=== PATIENT | male | born 1990 | race Caucasian/White ===

== ENCOUNTER 2016-06-20 14:46 | Emergency (ER) | payer OTHER ==
[~2016-06-20 14:46] MED LIST: No Historical Meds
--- NOTE | 2016-06-20 15:31 | EDDOCDS ---
Physician Documentation [facility] Name: Ger Fragoso Age: 25 yrs Sex: Male : 1990 Arrival Date: 06/20/2016 Time: 14:46 Bed Triage 3 Private MD: Marley Heart L. Disposition: 06/20/16 15:18 Discharged to Home/Self Care. Impression: Dental caries. - Condition is Stable. - Discharge Instructions: Dental Pain. - Prescriptions for Clindamycin HCl 300 mg Oral Capsule - take 1 capsule by ORAL route every 6 hours; 40 capsule. etodolac 200 mg Oral Capsule - take 1 capsule by ORAL route 3 times per day; 30 capsule. - Medication Reconciliation, Local Pharmacy Hours form. - Follow up: Your, Dentist; When: Call to arrange an appointment; Reason: Further diagnostic work-up, Recheck today's complaints, Continuance of care. - Problem is an acute exacerbation. - Symptoms are unchanged. Historical: - Allergies: No known drug Allergies; - Home Meds: 1. none - PMHx: drug addictioncan not have any type of controlled substances; - PSHx: left wrist surgery; - Social history: Smoking status: Patient uses tobacco products, light tobacco smoker. No barriers to communication noted, The patient speaks fluent French. - Family history: Not pertinent. - : The pt / caregiver states he / she is not on anticoagulants. Home medication list is obtained from the patient. - Exposure Risk Screening:: None identified. Vital Signs: 06/20 14:47 BP 171 / 77; Pulse 59; Resp 18; Temp 98.9(O); Pulse Ox 98% on R/A; Weight 127.01 kg / elp 280.01 lbs (R); Height 6 ft. 2 in. (187.96 cm) (R); Pain 10/10; 14:47 Body Mass Index 35.95 (127.01 kg, 187.96 cm) elp Signatures: Benny Nino, RN RN Arelis Martinez RN RN Ravin Virk PA PA btw MTDD
--- NOTE | 2016-06-20 15:31 | EDDOCDS ---
Nurse's Notes [facility] Name: Ger Fragoso Age: 25 yrs Sex: Male : 1990 Arrival Date: 06/20/2016 Time: 14:46 Bed Triage 3 Private MD: Marley Heart L. Diagnosis: Dental caries Presentation: 06/20 14:49 Presenting complaint: Patient states: lower dental pain x 1 week. Adult Sepsis [facility] Screening: The patient does not have new or worsening altered mentation. Patient's respiratory rate is less than 22. Patient has a qSOFA score of 0- Negative Sepsis Screen. Suicide/Homicide risk assessment- the patient denies having any suicidal and/or homicidal ideations and does not present with any other emotional, behavioral or mental health complaints. Status: Patient is not a track service worker or dependent. Transition of care: patient was not received from another setting of care. 14:49 Acuity: RICH Level 5 [facility] 14:49 Method Of Arrival: Walkin/Carried/Asstd [facility] Triage Assessment: 14:52 General: Appears uncomfortable, Behavior is appropriate for age. Pain: Location: lower kpj right third molar Pain currently is 10 out of 10 on a pain scale. Pt Declines HIV testing. Neurological: Level of Consciousness is awake, alert, Oriented to person, place, time. EENT: Reports pain in lower right third molar Pain is 10 out of 10 on a pain scale. Respiratory: Airway is patent Respiratory effort is even, unlabored, Respiratory pattern is regular, symmetrical. Derm: Skin is pink, warm & dry. Historical: - Allergies: No known drug Allergies; - Home Meds: 1. none - PMHx: drug addictioncan not have any type of controlled substances; - PSHx: left wrist surgery; - Social history: Smoking status: Patient uses tobacco products, light tobacco smoker. No barriers to communication noted, The patient speaks fluent Slovak. - Family history: Not pertinent. - : The pt / caregiver states he / she is not on anticoagulants. Home medication list is obtained from the patient. - Exposure Risk Screening:: None identified. Screenin:29 Screening information is obtained from the patient. Fall risk: No risks identified. dwg Assistance ADL's: requires no assistance with activities of daily living. Abuse/DV Screen: The patient / caregiver reports he/she is: not in a situation that causes fear, pain or injury. Nutritional screening: No deficits noted. Advance Directives: Currently, there is no health care proxy. There is no active DNR order. There is no living will. There is no Power of Cost Accountant. Advance directive information has not previously been placed in an [facility] medical record. Further advance directive information is declined. home support is adequate. Assessment: 15:28 General: Appears in no apparent distress. General: Lower dental pain for over a week. dwg Pain: Pain currently is 8 out of 10 on a pain scale. Neurological: Level of Consciousness is awake, alert, Oriented to person, place, time. Respiratory: Airway is patent Respiratory effort is even, unlabored, Respiratory pattern is regular, symmetrical. Vital Signs: 14:47 BP 171 / 77; Pulse 59; Resp 18; Temp 98.9(O); Pulse Ox 98% on R/A; Weight 127.01 kg elp (R); Height 6 ft. 2 in. (187.96 cm) (R); Pain 10/10; 14:47 Body Mass Index 35.95 (127.01 kg, 187.96 cm) [facility] Vitals: 14:47 Log In Time: June 20, 2016 at 14:45. [facility] ED Course: 14:47 Patient visited by Lety Richards PCA. elp 14:47 Marley Heart is Private Physician. elp 14:47 Patient moved to Waiting el 14:48 Patient visited by Lety Richards PCA. elp 14:48 Patient moved to Pre RCE elp 14:50 Triage Initiated [facility] 14:53 Patient moved to Triage 3 [facility] 15:14 [facility]avin Bruno [facility]. btw 15:14 Shanae Romero MD is Attending Physician. btw 15:14 Patient visited by Ravin Bruno PA. btw 15:17 Your Dentist is Referral Physician. btw 15:29 The patient / caregiver is instructed regarding the plan of care and ED course. dwg 15:30 No IV's were initiated during this patient's visit. No procedures done that require dwg assistance. Order Results: There are currently no results for this order. Outcome: 15:18 Discharge ordered by Provider. btw 15:29 Discharge Assessment: Patient awake, alert and oriented x 3. No cognitive and/or dwg functional deficits noted. Patient verbalized understanding of disposition instructions. patient administered narcotics - no. The following High Risk Discharge criteria are identified: None. Discharged to home ambulatory. Condition: good Condition: stable. No special radiology studies were completed. Property sent home with patient. 15:30 Patient left the ED. dwg Signatures: Benny Nino RN RN dwg Jobson, Karen, RN RN Ravin Virk PA PA btw Susie, Lety, NANCY SULFURIC ACID PLANT SUPERVISOR elp MTDD
--- NOTE | 2016-06-22 16:31 | EDDOCDS ---
Physician Documentation [facility] Name: Ger Fragoso Iii Age: 25 yrs Sex: Male : 1990 Arrival Date: 06/20/2016 Time: 14:46 Bed Triage 3 Private MD: Marley Heart L. Disposition: 06/20/16 15:18 Discharged to Home/Self Care. Impression: Dental caries. - Condition is Stable. - Discharge Instructions: Dental Pain. - Prescriptions for Clindamycin HCl 300 mg Oral Capsule - take 1 capsule by ORAL route every 6 hours; 40 capsule. etodolac 200 mg Oral Capsule - take 1 capsule by ORAL route 3 times per day; 30 capsule. - Medication Reconciliation, Local Pharmacy Hours form. - Follow up: Your, Dentist; When: Call to arrange an appointment; Reason: Further diagnostic work-up, Recheck today's complaints, Continuance of care. - Problem is an acute exacerbation. - Symptoms are unchanged. Historical: - Allergies: No known drug Allergies; - Home Meds: 1. none - PMHx: drug addictioncan not have any type of controlled substances; - PSHx: left wrist surgery; - Social history: Smoking status: Patient uses tobacco products, light tobacco smoker. No barriers to communication noted, The patient speaks fluent Mauritian. - Family history: Not pertinent. - : The pt / caregiver states he / she is not on anticoagulants. Home medication list is obtained from the patient. - Exposure Risk Screening:: None identified. Vital Signs: 06/20 14:47 BP 171 / 77; Pulse 59; Resp 18; Temp 98.9(O); Pulse Ox 98% on R/A; Weight 127.01 kg / elp 280.01 lbs (R); Height 6 ft. 2 in. (187.96 cm) (R); Pain 10/10; 14:47 Body Mass Index 35.95 (127.01 kg, 187.96 cm) elp MDM: 15:45 [facility] Payment Agreement was scanned into [employer] and attached to record. lg 06/21 11:38 T-Sheet-- Draft Copy was scanned into [employer] and attached to record. gb Signatures: Benny Nino RN RN Arelis Martinez RN RN Lexie Mccartney, Reg Reg gb Paula Tubbs, Reg Reg lg Ravin Bruno PA PA btw The chart was reviewed and I authenticate all verbal orders and agree with the evaluation and treatment provided.Attachments: 06/20 15:45 [facility] Payment Agreement lg 06/21 11:38 T-Sheet-- Draft Copy gb Chart Complete MTDD
--- NOTE | 2016-06-22 16:31 | EDDOCDS ---
Physician Documentation [facility] Name: Ger Fragoso Iii Age: 25 yrs Sex: Male : 1990 Arrival Date: 06/20/2016 Time: 14:46 Bed Triage 3 Private MD: Marley Heart L. Disposition: 06/20/16 15:18 Discharged to Home/Self Care. Impression: Dental caries. - Condition is Stable. - Discharge Instructions: Dental Pain. - Prescriptions for Clindamycin HCl 300 mg Oral Capsule - take 1 capsule by ORAL route every 6 hours; 40 capsule. etodolac 200 mg Oral Capsule - take 1 capsule by ORAL route 3 times per day; 30 capsule. - Medication Reconciliation, Local Pharmacy Hours form. - Follow up: Your, Dentist; When: Call to arrange an appointment; Reason: Further diagnostic work-up, Recheck today's complaints, Continuance of care. - Problem is an acute exacerbation. - Symptoms are unchanged. Historical: - Allergies: No known drug Allergies; - Home Meds: 1. none - PMHx: drug addictioncan not have any type of controlled substances; - PSHx: left wrist surgery; - Social history: Smoking status: Patient uses tobacco products, light tobacco smoker. No barriers to communication noted, The patient speaks fluent Bruneian. - Family history: Not pertinent. - : The pt / caregiver states he / she is not on anticoagulants. Home medication list is obtained from the patient. - Exposure Risk Screening:: None identified. Vital Signs: 06/20 14:47 BP 171 / 77; Pulse 59; Resp 18; Temp 98.9(O); Pulse Ox 98% on R/A; Weight 127.01 kg / elp 280.01 lbs (R); Height 6 ft. 2 in. (187.96 cm) (R); Pain 10/10; 14:47 Body Mass Index 35.95 (127.01 kg, 187.96 cm) elp MDM: 15:45 [facility] Payment Agreement was scanned into [employer] and attached to record. lg 06/21 11:38 T-Sheet-- Draft Copy was scanned into [employer] and attached to record. gb Signatures: Benny Nino RN RN Arelis Martinez RN RN Lexie Mccartney, Reg Reg gb Paula Tubbs, Reg Reg lg Ravin Bruno PA PA btw The chart was reviewed and I authenticate all verbal orders and agree with the evaluation and treatment provided.Attachments: 06/20 15:45 [facility] Payment Agreement lg 06/21 11:38 T-Sheet-- Draft Copy gb Chart Complete MTDD
--- NOTE | 2016-06-22 16:31 | EDDOCDS ---
Nurse's Notes [facility] Name: Ger Fragoso Iii Age: 25 yrs Sex: Male : 1990 Arrival Date: 06/20/2016 Time: 14:46 Bed Triage 3 Private MD: Marley Heart L. Diagnosis: Dental caries Presentation: 06/20 14:49 Presenting complaint: Patient states: lower dental pain x 1 week. Adult Sepsis [facility] Screening: The patient does not have new or worsening altered mentation. Patient's respiratory rate is less than 22. Patient has a qSOFA score of 0- Negative Sepsis Screen. Suicide/Homicide risk assessment- the patient denies having any suicidal and/or homicidal ideations and does not present with any other emotional, behavioral or mental health complaints. Status: Patient is not a client services account manager or dependent. Transition of care: patient was not received from another setting of care. 14:49 Acuity: RICH Level 5 [facility] 14:49 Method Of Arrival: Walkin/Carried/Asstd [facility] Triage Assessment: 14:52 General: Appears uncomfortable, Behavior is appropriate for age. Pain: Location: lower kpj right third molar Pain currently is 10 out of 10 on a pain scale. Pt Declines HIV testing. Neurological: Level of Consciousness is awake, alert, Oriented to person, place, time. EENT: Reports pain in lower right third molar Pain is 10 out of 10 on a pain scale. Respiratory: Airway is patent Respiratory effort is even, unlabored, Respiratory pattern is regular, symmetrical. Derm: Skin is pink, warm & dry. Historical: - Allergies: No known drug Allergies; - Home Meds: 1. none - PMHx: drug addictioncan not have any type of controlled substances; - PSHx: left wrist surgery; - Social history: Smoking status: Patient uses tobacco products, light tobacco smoker. No barriers to communication noted, The patient speaks fluent Malay. - Family history: Not pertinent. - : The pt / caregiver states he / she is not on anticoagulants. Home medication list is obtained from the patient. - Exposure Risk Screening:: None identified. Screenin:29 Screening information is obtained from the patient. Fall risk: No risks identified. dwg Assistance ADL's: requires no assistance with activities of daily living. Abuse/DV Screen: The patient / caregiver reports he/she is: not in a situation that causes fear, pain or injury. Nutritional screening: No deficits noted. Advance Directives: Currently, there is no health care proxy. There is no active DNR order. There is no living will. There is no Power of Supervisor Gear Repair. Advance directive information has not previously been placed in an [facility] medical record. Further advance directive information is declined. home support is adequate. Assessment: 15:28 General: Appears in no apparent distress. General: Lower dental pain for over a week. dwg Pain: Pain currently is 8 out of 10 on a pain scale. Neurological: Level of Consciousness is awake, alert, Oriented to person, place, time. Respiratory: Airway is patent Respiratory effort is even, unlabored, Respiratory pattern is regular, symmetrical. Vital Signs: 14:47 BP 171 / 77; Pulse 59; Resp 18; Temp 98.9(O); Pulse Ox 98% on R/A; Weight 127.01 kg elp (R); Height 6 ft. 2 in. (187.96 cm) (R); Pain 10/10; 14:47 Body Mass Index 35.95 (127.01 kg, 187.96 cm) el Vitals: 14:47 Log In Time: June 20, 2016 at 14:45. el ED Course: 14:47 Patient visited by Lety Richards PCA. elp 14:47 Marley Heart is Private Physician. elp 14:47 Patient moved to Waiting el 14:48 Patient visited by Lety Richards PCA. elp 14:48 Patient moved to Pre RCE elp 14:50 Triage Initiated [facility] 14:53 Patient moved to Triage 3 [facility] 15:14 Ravin Bruno [facility]. btw 15:14 Shanae Romero MD is Attending Physician. btw 15:14 Patient visited by Ravin Bruno PA. btw 15:17 Your, Dentist is Referral Physician. btw 15:29 The patient / caregiver is instructed regarding the plan of care and ED course. dwg 15:30 No IV's were initiated during this patient's visit. No procedures done that require dwg assistance. 15:45 Patient name changed from Ger\S\Jamar\S\[place]\S\ to Ger\S\W\S\[place]. EDMS 15:45 [facility] [place] Agreement was scanned into [employer] and attached to record. lg 15:49 Patient name changed from Ger\S\W\S\[place]\S\ to Ger\S\W\S\[place] Iii. EDMS 06/21 11:38 T-Sheet-- Draft Copy was scanned into [employer] and attached to record. Order Results: There are currently no results for this order. Outcome: 06/20 15:18 Discharge ordered by Provider. btw 15:29 Discharge Assessment: Patient awake, alert and oriented x 3. No cognitive and/or dwg functional deficits noted. Patient verbalized understanding of disposition instructions. patient administered narcotics - no. The following High Risk Discharge criteria are identified: None. Discharged to home ambulatory. Condition: good Condition: stable. No special radiology studies were completed. Property sent home with patient. 15:30 Patient left the ED. dwg Signatures: [facility] Benny Nino, RN RN [facility] Arelis Morales, RYAN RN Lexie Mcacrtney, Reg Reg gb Paula Tubbs, Reg Reg lg Ravin Bruno PA PA btw Susie, Lety, BRIDGE GAME DIRECTOR BRIDGE GAME DIRECTOR elp Chart Complete MTDD
== END 2016-06-20 15:30 | disposition home or self-care (01) ==
LOC: M ED 14:46
DX: K02.9 Dental caries, unspecified (principal); F17.210 Nicotine dependence, cigarettes, uncomplicated

== ENCOUNTER → 2016-06-28 | Outpatient (CLI) | payer OTHER ==
[2016-06-28 08:43] LABS: ALBUMIN 3.7 GM/DL (3.2-5.2); ALBUMIN/GLOBULIN RATIO 1.06 (1.00-1.93); BILIRUBIN,DIRECT 0.1 MG/DL (0.0-0.2); BILIRUBIN,TOTAL 0.5 MG/DL (0.2-1.0); TOTAL PROTEIN 7.2 GM/DL (6.4-8.2)
== END ==
LOC: M LAB 07:44
PROVIDERS: ATTEND Nurse Practitioner Family
DX: N39.0 Urinary tract infection, site not specified (principal); K72.90 Hepatic failure, unspecified without coma

== ENCOUNTER → 2016-07-30 | Outpatient (REF) | payer OTHER | LOC: M SMT 17:18 | PROVIDERS: ATTEND Nurse Practitioner Women's Health | DX: R31.29 Other microscopic hematuria (principal) ==

== ENCOUNTER → 2016-08-12 | Outpatient (CLI) | payer OTHER ==
[~2016-08-12] MED LIST changes: +ISOVUE-370 76% 100ML VIAL (Q9967) As Ordered ONE
--- NOTE | 2016-08-12 08:51 | REP ---
Clinical: Hematuria. Technique: Axial precontrast, contrast enhanced, and delayed images of the abdomen and pelvis using 100 ml Isovue 370 intravenous contrast material with coronal and sagittal re-formations. Comparison: None. Findings: Evaluation of the urinary tract system in all phases of enhancement demonstrates normal kidneys, ureters, and bladder. Specifically, there is no perinephric stranding, hydroureteronephrosis, intrarenal or obstructing ureteral calculi. No renal cyst or mass lesions are identified. Liver, spleen, pancreas, gallbladder, bilateral adrenal glands are normal. The enteric system is without obstruction or acute inflammatory process normal terminal ileum and appendix are identified in the right lower quadrant sigmoid diverticula noted without acute diverticulitis. No ascites. No free air. No adenopathy. Small hiatal hernia at the gastroesophageal junction. Lung bases clear. Visualized heart and pericardium normal. Musculoskeletal structures are intact - multiple Schmorl's nodes suggested. Impression: 1. Normal urinary tract system. 2. Small hiatal hernia 3. Sigmoid diverticula without acute diverticulitis 4. No acute intra-abdominal or pelvic pathology appreciated 5. Multilevel Schmorl's nodes. Signed by Venkatesh Delgado MD 08/12/2016 08:43 A
== END ==
LOC: M RAD 07:58
PROVIDERS: ATTEND Nurse Practitioner Women's Health
DX: R31.29 Other microscopic hematuria (principal)

== ENCOUNTER 2017-02-11 11:43 | Emergency (ER) | payer OTHER ==
[~2017-02-11] VITALS: Ht 188 cm; Wt 129.6 kg
[~2017-02-11 11:43] MED LIST changes: -ISOVUE-370 76% 100ML VIAL (Q9967) As Ordered ONE
[2017-02-11] MEDS ORDERED: ZITHTAB PO (13:30)
[2017-02-11] MEDS ORDERED: ALBU17IN INH (13:31)
[2017-02-11 13:34] VITALS: BP 142/79
== END 2017-02-11 13:51 | disposition home or self-care (01) ==
LOC: M ED 11:43
DX: J40 Bronchitis, not specified as acute or chronic (principal); I10 Essential (primary) hypertension; F41.9 Anxiety disorder, unspecified; F33.9 Major depressive disorder, recurrent, unspecified; F17.210 Nicotine dependence, cigarettes, uncomplicated

== ENCOUNTER → 2020-04-24 | Outpatient (REF) | payer OTHER ==
[~2020-04-24] MED LIST changes: +ALBU17IN INH; +ZITHTAB PO
[2020-04-24 12:35] LABS: BASO # 0.1 10^3/uL (0.0-0.2); BASO % 0.7 % (0.0-1.0); EOS # 0.4 10^3/uL (0.0-0.5); EOS % 3.2 % (0.0-3.0); HEMATOCRIT 46.2 % (42.0-52.0); HEMOGLOBIN 14.4 g/dl (13.5-17.5); LYMPH # 2.9 10^3/uL (1.5-5.0); LYMPH % 26.9 % (24.0-44.0); MEAN CORPUSCULAR HEMOGLOBIN 27.4 pg (27.0-33.0); MEAN CORPUSCULAR HGB CONC 31.2 g/dl (32.0-36.5); MEAN CORPUSCULAR VOLUME 87.8 fl (80.0-96.0); MONO # 0.7 10^3/uL (0.0-0.8); MONO % 6.2 % (0.0-5.0); NEUTROPHILS # 6.8 10^3/uL (1.5-8.5); NEUTROPHILS % 62.7 % (36.0-66.0); PLATELET COUNT, AUTOMATED 234 10^3/uL (150-450); RED BLOOD COUNT 5.26 10^6/uL (4.30-6.10); WHITE BLOOD COUNT 10.9 10^3/uL (4.0-10.0)
[2020-04-24 13:10] LABS: ALBUMIN 3.6 GM/DL (3.2-5.2); ALT/SGPT 59 U/L (12-78); BILIRUBIN,TOTAL 0.5 MG/DL (0.2-1.0); BLOOD UREA NITROGEN 12 MG/DL (7-18); CALCIUM LEVEL 8.8 MG/DL (8.5-10.1); CARBON DIOXIDE LEVEL 29 MEQ/L (21-32); CHLORIDE LEVEL 103 MEQ/L (98-107); CHOLESTEROL LEVEL 212 MG/DL (<200); CHOLESTEROL RISK RATIO 6.838 (<5); CREATININE FOR GFR 0.83 MG/DL (0.70-1.30); FREE T4 1.34 NG/DL (0.76-1.46); GLOMERULAR FILTRATION RATE > 60.0 (>60); GLUCOSE, FASTING 113 MG/DL (70-100); HDL CHOLESTEROL 31 MG/DL (>40); LDL CHOLESTEROL 138 MG/DL (<100); NON-HDL-C 181 MG/DL; SODIUM LEVEL 138 MEQ/L (136-145); TOTAL 25(OH) VITAMIN D 19.7 NG/ML (30.0-100.0); TOTAL PROTEIN 8.1 GM/DL (6.4-8.2); TRIGLYCERIDES LEVEL 217 MG/DL (<150)
[2020-04-24 13:14] LABS: HEMOGLOBIN A1c 6.6 %
== END ==
LOC: M LAB REF 11:52
PROVIDERS: ATTEND Nurse Practitioner Family
DX: E66.01 Morbid (severe) obesity due to excess calories (principal); F90.8 Attention-deficit hyperactivity disorder, other type; F17.200 Nicotine dependence, unspecified, uncomplicated

== ENCOUNTER 2020-05-05 07:43 | Emergency (ER) | payer OTHER ==
[~2020-05-05] VITALS: Ht 188 cm; Wt 159.4 kg
[2020-05-05] MEDS ORDERED: BUPR1TAB56 (07:51)
[2020-05-05] MEDS ORDERED: ESCI20TA (07:51)
[2020-05-05] MEDS ORDERED: ACETAMINOPHEN 500 MG TAB PO ONE (08:45)
[2020-05-05] MEDS ORDERED: KETOROLAC 60MG 2ML VIAL IM ONE (08:45)
[2020-05-05] MEDS ORDERED: ROBA750T4 PO (09:35)
[2020-05-05] MEDS ORDERED: KETO10TAB PO (09:35)
[2020-05-05 09:44] VITALS: BP 117/69
== END 2020-05-05 09:54 | disposition home or self-care (01) ==
LOC: M ED 07:43
DX: M54.31 Sciatica, right side (principal); M54.32 Sciatica, left side; F17.200 Nicotine dependence, unspecified, uncomplicated
CPT/HCPCS: 96372; 99284; J1885

== ENCOUNTER 2020-11-03 17:10 | Emergency (ER) | payer OTHER ==
[~2020-11-03] VITALS: Ht 188 cm; Wt 150.5 kg
[~2020-11-03 17:10] MED LIST changes: +BUPR1TAB56; +ESCI20TA16; +KETO10TAB PO; +ROBA750T4 PO
[2020-11-03 17:11] VITALS: BP 139/69
[2020-11-03] MEDS: NS 1,000 ML IV ONE (17:45)
[2020-11-03] MEDS ORDERED: MORPHINE 4 MG/ML 1ML VIAL/SYRINGE (J2270) As Ordered ONE (17:47)
[2020-11-03] MEDS ORDERED: ONDANSETRON 4MG/2ML VIAL As Ordered ONE (17:47)
[2020-11-03] MEDS ORDERED: ISOVUE-370 76% 100ML VIAL As Ordered ONE (18:00)
[2020-11-03] MEDS: MORPHINE 4 MG/ML 1ML VIAL/SYRINGE (J2270) IV ONE (18:05)
[2020-11-03] MEDS: ONDANSETRON 4MG/2ML VIAL IV ONE (18:05)
[2020-11-03 18:25] LABS: BASO # 0.1 10^3/uL (0.0-0.2); BASO % 0.5 % (0.0-1.0); EOS # 0.3 10^3/uL (0.0-0.5); EOS % 1.8 % (0.0-3.0); HEMOGLOBIN 14.3 g/dl (13.5-17.5); LYMPH # 3.1 10^3/uL (1.5-5.0); MEAN CORPUSCULAR HEMOGLOBIN 28.5 pg (27.0-33.0); MEAN CORPUSCULAR HGB CONC 32.5 g/dl (32.0-36.5); MEAN CORPUSCULAR VOLUME 87.8 fl (80.0-96.0); MONO # 0.8 10^3/uL (0.0-0.8); MONO % 5.3 % (2.0-8.0); NEUTROPHILS # 10.4 10^3/uL (1.5-8.5); NEUTROPHILS % 70.9 % (36.0-66.0); PLATELET COUNT, AUTOMATED 255 10^3/uL (150-450); RED BLOOD COUNT 5.01 10^6/uL (4.30-6.10); WHITE BLOOD COUNT 14.7 10^3/uL (4.0-10.0)
[2020-11-03 18:48] LABS: ALBUMIN 3.8 GM/DL (3.2-5.2); ALT/SGPT 50 U/L (12-78); AMYLASE 25 U/L (25-115); BILIRUBIN,DIRECT 0.1 MG/DL (0.0-0.2); BILIRUBIN,TOTAL 0.5 MG/DL (0.2-1.0); CPK CREATINE PHOSPHOKINASE 461 U/L (39-308); LIPASE 47 U/L (73-393); MB/CK RELATIVE INDEX 0.65 (< OR =4); TOTAL PROTEIN 8.1 GM/DL (6.4-8.2); TROPONIN I < 0.02 NG/ML (< 0.10)
--- NOTE | 2020-11-03 18:49 | REPVR ---
PROCEDURE INFORMATION: Exam: CT Head Without Contrast Exam date and time: 11/03/2020 5:42 PM Age: 30 years old Clinical indication: Injury or trauma; Other: Pinned by lawn tractor; Blunt trauma (contusions or hematomas) TECHNIQUE: Imaging protocol: Computed tomography of the head without contrast. Radiation optimization: All CT scans at this facility use at least one of these dose optimization techniques: automated exposure control; mA and/or kV adjustment per patient size (includes targeted exams where dose is matched to clinical indication); or iterative reconstruction. COMPARISON: CT Head without contrast 12/06/2013 12:42 PM FINDINGS: Brain: Normal. No hemorrhage. Unremarkable white matter. No mass effect. Cerebral ventricles: No ventriculomegaly. Paranasal sinuses: Small retention cyst right maxillary sinus. Inflammatory changes in the ethmoid and left sphenoid sinuses. Mastoid air cells: Visualized mastoid air cells are well aerated. Bones/joints: Unremarkable. No acute fracture. Soft tissues: Unremarkable. IMPRESSION: No acute intracranial findings. Electronically signed by: Joselo Granado On 11/03/2020 18:49:36 PM
--- NOTE | 2020-11-03 18:52 | REPVR ---
PROCEDURE INFORMATION: Exam: CT Cervical Spine Without Contrast Exam date and time: 11/03/2020 5:42 PM Age: 30 years old Clinical indication: Injury or trauma; Other: Pinned by lawn tractor; Blunt trauma TECHNIQUE: Imaging protocol: Computed tomography images of the cervical spine without contrast. Radiation optimization: All CT scans at this facility use at least one of these dose optimization techniques: automated exposure control; mA and/or kV adjustment per patient size (includes targeted exams where dose is matched to clinical indication); or iterative reconstruction. COMPARISON: CT Spine,cervical w/o contrast 12/06/2013 12:42 PM FINDINGS: Bones/joints: No acute fracture. Normal alignment. Discs/Spinal canal/Neural foramina: No significant disc protrusion. No severe spinal canal stenosis. No significant neural foraminal narrowing. Lungs: Lung apices are normal. Soft tissues: Unremarkable. IMPRESSION: No acute findings. Electronically signed by: Joselo Granado On 11/03/2020 18:52:29 PM
--- NOTE | 2020-11-03 18:58 | REPVR ---
PROCEDURE INFORMATION: Exam: CT Abdomen And Pelvis With Contrast Exam date and time: 11/03/2020 5:42 PM Age: 30 years old Clinical indication: Injury or trauma; Other: Pinned by lawn tractor; Blunt; Generalized TECHNIQUE: Imaging protocol: Computed tomography of the abdomen and pelvis with contrast. Radiation optimization: All CT scans at this facility use at least one of these dose optimization techniques: automated exposure control; mA and/or kV adjustment per patient size (includes targeted exams where dose is matched to clinical indication); or iterative reconstruction. Contrast material: ISOVUE 370; Contrast volume: 100 ml; Contrast route: INTRAVENOUS (IV); COMPARISON: CT ABD PELVIS W/O FOL BY WIT 08/12/2016 8:13 AM FINDINGS: Liver: There is a diffuse decrease in hepatic parenchymal density, consistent with steatosis. 9 mm hyperenhancing focus in the inferior aspect of the right lobe of the liver. Differential diagnosis includes hemangioma and focal nodular hyperplasia. Finding not visualized on prior studies. Gallbladder and bile ducts: Normal. No calcified stones. No ductal dilation. Pancreas: Normal. No ductal dilation. Spleen: Normal. No splenomegaly. Adrenal glands: Normal. No mass. Kidneys and ureters: Normal. No hydronephrosis. Stomach and bowel: Dilated small bowel loops in the mid abdomen, findings which may be secondary to an ileus. Appendix: No evidence of appendicitis. Intraperitoneal space: Unremarkable. No free air. No significant fluid collection. Vasculature: Unremarkable. No abdominal aortic aneurysm. Lymph nodes: Unremarkable. No enlarged lymph nodes. Urinary bladder: Unremarkable as visualized. Reproductive: Unremarkable as visualized. Bones/joints: Unremarkable. No acute fracture. Soft tissues: Unremarkable. IMPRESSION: 1. There is a diffuse decrease in hepatic parenchymal density, consistent with steatosis. 2. 9 mm hyperenhancing focus in the inferior aspect of the right lobe of the liver. Differential diagnosis includes hemangioma and focal nodular hyperplasia. Finding not visualized on prior studies. 3. Dilated small bowel loops in the mid abdomen, findings which may be secondary to an ileus. Electronically signed by: Joselo Granado On 11/03/2020 18:58:31 PM
--- NOTE | 2020-11-03 19:03 | REPVR ---
PROCEDURE INFORMATION: Exam: CT Chest With Contrast; Diagnostic Exam date and time: 11/03/2020 5:42 PM Age: 30 years old Clinical indication: Injury or trauma; Other: Pinned by lawn tractor; Blunt trauma (contusions or hematomas) TECHNIQUE: Imaging protocol: Diagnostic computed tomography of the chest with contrast. Radiation optimization: All CT scans at this facility use at least one of these dose optimization techniques: automated exposure control; mA and/or kV adjustment per patient size (includes targeted exams where dose is matched to clinical indication); or iterative reconstruction. Contrast material: ISOVUE 370; Contrast volume: 100 ml; Contrast route: INTRAVENOUS (IV); COMPARISON: No relevant prior studies available. FINDINGS: Lungs: 6 mm noncalcified nodule posterior aspect of the left upper lobe abutting the major fissure. Pleural spaces: Unremarkable. No pneumothorax. No pleural effusion. Heart: Unremarkable. No cardiomegaly. No pericardial effusion. Aorta: Unremarkable. No aortic aneurysm. Lymph nodes: Unremarkable. No enlarged lymph nodes. Bones/joints: Unremarkable. No acute fracture. Soft tissues: Unremarkable. IMPRESSION: 1. 6 mm noncalcified nodule posterior aspect of the left upper lobe abutting the major fissure. For patients at low risk (minimal or absent history of smoking and of other known risk factors), no routine follow-up is indicated. For patients at high risk (history of smoking or of other known risk factors), consider optional CT Chest at 12 months. (Reference: Rowdy) 2. No acute findings. REFERENCES: Rowdy H, et al. Guidelines for Management of Incidental Pulmonary Nodules Detected on CT Images: From the Fleischner Society 2017. Radiology. 2017;284(1):228-243. Electronically signed by: Joselo Granado On 11/03/2020 19:02:50 PM
[2020-11-03] MEDS: KETOROLAC 30 MG/ML 1ML VIAL IV ONE (19:26)
[2020-11-03] MEDS ORDERED: KETO10TAB PO (19:29)
[2020-11-03] MEDS: OXYCODONE/APAP 5MG/325MG(BULK FOR ED) 1 TABLET PO ONE (20:14)
--- NOTE | 2020-11-05 08:38 | ED PDOC ---
Post-Departure Follow-Up radiology repr tfaxed to Yudy Rabago Sarah MD Nov 05, 2020 08:38
== END 2020-11-03 20:20 | disposition home or self-care (01) ==
LOC: M ED 17:10
DX: M54.5 Low back pain (principal); G89.11 Acute pain due to trauma; F17.200 Nicotine dependence, unspecified, uncomplicated
CPT/HCPCS: 70450; 71260; 72125; 74177; 80047; 80076; 82150; 82550; 82553; 83690; 85025; 86850; 86900; 86901; 93041; 94760; 96374; 96375; 99284; J1885; J2270; J2405; Q9967

== ENCOUNTER → 2022-07-08 | Outpatient (CLI) | payer OTHER ==
[~2022-07-08] MED LIST changes: +ONDA4TAB6 PO
[2022-07-08 13:17] LABS: CREATININE, URINE 168.4 MG/DL; MAU/CREAT RATIO 4.1 MCG/MG (0.0-30.0)
[2022-07-08 13:21] LABS: CHOLESTEROL RISK RATIO 4.03 (<5); HDL CHOLESTEROL 40.9 MG/DL (>40); LDL CHOLESTEROL 61.9 MG/DL (<100)
[2022-07-08 13:24] LABS: FREE T4 1.03 NG/DL (0.89-1.76); THYROID STIMULATING HORMONE 2.297 uIU/ML (0.55-4.78)
[2022-07-08 13:25] LABS: TOTAL 25(OH) VITAMIN D 19.6 NG/ML (20.0-100.0)
== END ==
LOC: M WUC 09:00
PROVIDERS: ATTEND Nurse Practitioner Family
DX: E11.9 Type 2 diabetes mellitus without complications (principal); E78.2 Mixed hyperlipidemia; E66.9 Obesity, unspecified

== ENCOUNTER 2022-10-04 19:38 | Emergency (ER) | payer OTHER ==
[~2022-10-04] VITALS: Ht 190.5 cm; Wt 127.3 kg
[2022-10-04 19:56] VITALS: BP 131/67
[2022-10-04 21:42] LABS: BASO # 0.1 10^3/uL (0.0-0.2); BASO % 0.4 % (0.0-1.0); EOS # 0.1 10^3/uL (0.0-0.5); EOS % 0.5 % (0.0-3.0); HEMATOCRIT 42.6 % (42.0-52.0); HEMOGLOBIN 14.6 g/dl (13.5-17.5); LYMPH # 3.1 10^3/uL (1.5-5.0); LYMPH % 17.8 % (24.0-44.0); MEAN CORPUSCULAR HEMOGLOBIN 31.1 pg (27.0-33.0); MEAN CORPUSCULAR HGB CONC 34.3 g/dl (32.0-36.5); MEAN CORPUSCULAR VOLUME 90.8 fl (80.0-96.0); MONO # 1.4 10^3/uL (0.0-0.8); MONO % 8.3 % (2.0-8.0); NEUTROPHILS # 12.4 10^3/uL (1.5-8.5); NEUTROPHILS % 72.6 % (36.0-66.0); PLATELET COUNT, AUTOMATED 207 10^3/uL (150-450); RED BLOOD COUNT 4.69 10^6/uL (4.30-6.10); WHITE BLOOD COUNT 17.1 10^3/uL (4.0-10.0)
[2022-10-04 21:51] LABS: APPEARANCE, URINE HAZY (CLEAR); BACTERIA, URINE AUTO NEGATIVE (NEGATIVE); BILIRUBIN, URINE AUTO NEGATIVE (NEGATIVE); BLOOD, URINE BLOOD NEGATIVE (NEGATIVE); COLOR, URINE YELLOW (YELLOW); GLUCOSE, URINE (UA) AUTO NEGATIVE (NEGATIVE); KETONE, URINE AUTO 2+ mg/dL (NEGATIVE); LEUKOCYTE ESTERASE, URINE AUTO NEGATIVE (NEGATIVE); MUCUS, URINE SMALL (NEGATIVE); NITRITE, URINE AUTO NEGATIVE (NEGATIVE); PROTEIN, URINE AUTO 2+ mg/dL (NEGATIVE); RBC, URINE AUTO 2 /HPF (0-3); SPECIFIC GRAVITY URINE AUTO 1.028 (1.002-1.035); SQUAMOUS EPITHELIAL CELL UR AU 0 /HPF (0-6); UROBILINOGEN, URINE AUTO 0.2 mg/dL (0.0-2.0); WBC, URINE AUTO 2 /HPF (0-3)
[2022-10-04 21:55] LABS: ETHYL ALCOHOL (ETHANOL) < 0.003 % (0.000-0.010)
[2022-10-04 21:57] LABS: ACETAMINOPHEN LEVEL < 2.0 UG/ML (10.0-20.0); ALBUMIN 4.1 G/DL (3.2-5.2); ALKALINE PHOSPHATASE 87 U/L (46-116); ALT/SGPT 109 U/L (7.0-40); AST/SGOT 277 U/L (<34); BILIRUBIN,TOTAL 1.3 MG/DL (0.3-1.2); BLOOD UREA NITROGEN 18 MG/DL (9-23); CALCIUM LEVEL 8.8 MG/DL (8.5-10.1); CARBON DIOXIDE LEVEL 20 MMOL/L (20-31); CHLORIDE LEVEL 100 MMOL/L (98-107); CREATININE FOR GFR 0.75 MG/DL (0.70-1.30); GLOMERULAR FILTRATION RATE > 60.0 (>60); GLUCOSE, FASTING 103 MG/DL (60-100); POTASSIUM SERUM 3.3 MMOL/L (3.5-5.1); SALICYLATE LEVEL < 3.0 MG/DL (<30); SODIUM LEVEL 136 MMOL/L (136-145); TOTAL PROTEIN 7.5 G/DL (5.7-8.2)
[2022-10-04 22:11] LABS: BARBITURATES URINE NEGATIVE (NEGATIVE); BENZODIAZEPINES URINE NEGATIVE (NEGATIVE); COCAINE METABOLITE URINE NEGATIVE (NEGATIVE)
[2022-10-04 22:12] LABS: METHADONE URINE NEGATIVE (NEGATIVE); OPIATES URINE NEGATIVE (NEGATIVE); PHENCYCLIDINE URINE NEGATIVE (NEGATIVE)
[2022-10-04 22:15] LABS: AMPHETAMINES LEVEL URINE POSITIVE (NEGATIVE); CANNABINOIDS URINE POSITIVE (NEGATIVE)
[2022-10-04] MEDS ORDERED: NS 1,000 ML IV ONE (22:20)
[2022-10-04] MEDS ORDERED: ISOVUE-370 76% 100ML VIAL As Ordered ONE (22:36)
== END 2022-10-05 00:26 | disposition home or self-care (01) ==
LOC: M ED 19:38 → EDBD 19:38 → M ED 10-05 00:26
DX: S30.811A Abrasion of abdominal wall, initial encounter (principal); F15.10 Other stimulant abuse, uncomplicated; M54.2 Cervicalgia; R74.01 Elevation of levels of liver transaminase levels; Y04.0XXA Assault by unarmed brawl or fight, initial encounter; Z79.83 Long term (current) use of bisphosphonates; Z79.899 Other long term (current) drug therapy
CPT/HCPCS: 36415; 70450; 72125; 72128; 72131; 74177; 80053; 80143; 80307; 81001; 82077; 82140; 83605; 85025; 87040; 99284; Q9967

== ENCOUNTER → 2022-10-09 | Outpatient (CLI) | payer OTHER | LOC: M OUTALCOH 08:47 | PROVIDERS: ATTEND Psychiatry & Neurology Psychiatry | DX: Z00.00 Encounter for general adult medical examination without abnormal findings (principal) ==

== ENCOUNTER → 2022-10-23 | Outpatient (RCR) | payer OTHER | LOC: M OUTALCOH 10-16 09:55 | PROVIDERS: ATTEND Psychiatry & Neurology Psychiatry | DX: F15.10 Other stimulant abuse, uncomplicated (principal); F17.200 Nicotine dependence, unspecified, uncomplicated ==

== ENCOUNTER 2022-11-21 09:00 | Outpatient (RCR) | payer OTHER | END 2022-11-22 | LOC: M OUTALCOH 09:00 | PROVIDERS: ATTEND Psychiatry & Neurology Psychiatry | DX: F15.10 Other stimulant abuse, uncomplicated (principal); F17.200 Nicotine dependence, unspecified, uncomplicated ==

== ENCOUNTER 2022-12-03 11:30 | Outpatient (RCR) | payer OTHER | END 2022-12-23 | LOC: M OUTALCOH 11:30 | PROVIDERS: ATTEND Psychiatry & Neurology Psychiatry | DX: F15.10 Other stimulant abuse, uncomplicated (principal); F17.200 Nicotine dependence, unspecified, uncomplicated ==

== ENCOUNTER → 2024-01-15 | Outpatient (CLI) | payer OTHER ==
[~2024-01-15] MED LIST changes: +ONDA-282 PO; -ONDA4TAB6 PO
== END ==
LOC: M OUTALCOH 12:46
PROVIDERS: ATTEND Psychiatry & Neurology Psychiatry
DX: F15.10 Other stimulant abuse, uncomplicated (principal); F17.200 Nicotine dependence, unspecified, uncomplicated; F12.20 Cannabis dependence, uncomplicated

== ENCOUNTER → 2025-03-17 | Outpatient (CLI) | payer OTHER ==
[~2025-03-17] MED LIST changes: -BUPR1TAB56; +BUPR200T45
== END ==
LOC: M OUTALCOH 08:27
PROVIDERS: ATTEND Psychiatry & Neurology Psychiatry
DX: F15.20 Other stimulant dependence, uncomplicated (principal); F17.200 Nicotine dependence, unspecified, uncomplicated

== ENCOUNTER 2025-03-24 09:35 | Outpatient (RCR) | payer OTHER | END 2025-03-25 | LOC: M OUTALCOH 09:35 | PROVIDERS: ATTEND Psychiatry & Neurology Psychiatry | DX: F15.20 Other stimulant dependence, uncomplicated (principal); F17.200 Nicotine dependence, unspecified, uncomplicated ==

== ENCOUNTER 2025-04-18 14:52 | Outpatient (RCR) | payer OTHER | END 2025-04-24 | LOC: M OUTALCOH 14:52 | PROVIDERS: ATTEND Psychiatry & Neurology Psychiatry | DX: F15.20 Other stimulant dependence, uncomplicated (principal); F17.200 Nicotine dependence, unspecified, uncomplicated | CPT/HCPCS: 99211; G0397 ==

== ENCOUNTER → 2025-05-25 | Outpatient (RCR) | payer OTHER | LOC: M OUTALCOH 04-25 08:40 | PROVIDERS: ATTEND Psychiatry & Neurology Psychiatry | DX: F15.20 Other stimulant dependence, uncomplicated (principal); F17.200 Nicotine dependence, unspecified, uncomplicated ==